=== PATIENT | female | born 1995 | race Caucasian/White ===

== ENCOUNTER 2021-08-04 14:35 | Emergency (ER) | payer OTHER, SELFPAY ==
[2021-08-04 14:38] VITALS: BP 130/92; PULSE 105; RESP 18; TEMP 36.7; O2SAT 98; BMI 21.2
== END 2021-08-04 17:52 | disposition left against medical advice (07) ==
PROVIDERS: Emergency Provider Emergency Medicine; PCP Internal Medicine
DX: M54.50 Low back pain, unspecified (principal)
CPT/HCPCS: 99281

== ENCOUNTER 2025-06-27 14:04 | Outpatient (AMB) | payer OTHER, SELFPAY ==
[2025-06-27 14:10] VITALS: BP 112/67; PULSE 87; RESP 16; O2SAT 98; BMI 19.6
--- NOTE | 2025-06-27 14:10 | A.OFFVIS_ITS ---
Vital Signs 06/27/25 14:10 Height 4 ft 11 in Weight 97 lb BMI 19.6 BP 112/67 Blood Pressure Location Lt brachial Position Sitting Respiration 16 Pulse 87 Pulse Source Pulse Oximeter Pulse Oximetry (%) 98 Oxygen Delivery Method Room Air Intake Visit Reasons: Lumbar radiculitis Stick Welder Required: No Accompanied by: Self / Same As Patient Allergies No Known Allergies Allergy (Verified 06/27/25 14:13) HPI Comments Details: The patient is a 30-year-old female presenting with chronic back pain and sacroiliac joint dysfunction. The patient reports having scoliosis since the age of 11, which was initially managed with a back brace for one year. The scoliosis was deemed moderate, and no further treatment was pursued after the brace was lost during a move from [place]. The patient describes her back pain as constant, with a stabbing, sharp, cramping, pulling, tugging, burning, sore, achy, and heavy quality. The pain radiates from the lower back to the buttocks and into the back of the leg, but not below the knee. The pain is exacerbated by prolonged sitting, walking, and changing positions. The patient has had three pregnancies, with the last one occurring three years ago, which she believes contributed to her sacroiliac joint dysfunction. She has attempted physical therapy multiple times, most recently at the beginning of the year, but found it ineffective. She has also received multiple steroid injections in the lumbar spine and sacroiliac joints at [facility] and [facility], which provided short term pain relief. Patient is not interested in therapeutic injections but is looking for a more permanent pain management options. The patient has a history of childhood epilepsy, which resolved after the onset of menstruation. She currently uses ibuprofen for pain management and has previously used tramadol, which was effective but difficult to obtain. She also tried meloxicam 7.5 mg daily as needed with minimal relief. The patient denies smoking but uses marijuana obtained from a local dispensary. - Onset: Chronic, since adolescence due to scoliosis - Quality: Stabbing, sharp, cramping, pulling, tugging, burning, sore, achy, heavy, pulling - Location: Lower back, radiating to buttocks and back of the leg - Radiation: Does not extend below the knee - Exacerbating factors: Prolonged sitting, walking, changing positions - Relieving factors: Rest, tramadol - Affect: Pain causes exhaustion and fearfulness - Analgesia: Uses ibuprofen; tramadol was effective but difficult to obtain - Adverse Effects: None reported - Activities of Daily Living: Pain interferes with prolonged sitting, walking, and changing positions - Aberrant Drug Related Behaviors: None reported Oswestry Low Back Pain Disability Score=34 [facility] Medical History (Updated 06/29/25 @ 22:31 by LEIGHA Lazaro) Chronic sacroiliac joint pain Scoliosis Pain of female genitalia OCD (obsessive compulsive disorder) Mild intermittent asthma Lumbar radiculitis GERD (gastroesophageal reflux disease) Epilepsy COVID-19 affecting in third trimester Depression Arthropathy of lumbar facet joint Bipolar 1 disorder Surgical History (Updated 06/27/25 @ 14:30 by Maxine Salomon MA) History of bunionectomy Review of Systems Const Details: - Musculoskeletal: Reports chronic back pain, radiating to buttocks and back of the leg - Neurological: Denies seizures currently, history of childhood epilepsy All systems reviewed & are unremarkable except as noted in HPI and below Physical Exam Vital Signs: Last Vital Signs Pulse 87 06/27/25 14:10 Resp 16 06/27/25 14:10 BP 112/67 06/27/25 14:10 Pulse Ox 98 06/27/25 14:10 Oxygen Delivery Method Room Air 06/27/25 14:10 BMI result Body Mass Index 19.6 General: Appears afebrile. Alert and oriented. Mood and affect appropriate. Follows and participates in conversation appropriately. Respiratory effort is unlabored. No cough. Able to transition from sit to stand unassisted. Ambulates with bilaterally normal heel strike and toe off. General: Yes no CVA tenderness Back/Spine/Pelvis Other: Patient is able to walk and stand on heels and tip toes with no difficulties demonstrating good motor tone. No limping. Can flex forward to 70-75 degrees and extend to 5-10 degrees before experiencing lumbar pain. Demonstrates 5/5 strength of quadriceps bilaterally as well as flexion/dorsiflexion of bilateral feet against resistance. 2+ pedal pulses bilaterally. Straight leg rise with dorsiflexion negative bilaterally. +2 patellar and achilles reflexes bilaterally. Facet loading test positive bilaterally. Mia sign, Flaco?s, Gaenslen, Pelvic compression and Stinchfield tests are positive bilaterally. No groin pain with I/E hip rotations. Valsalva maneuver negative. Back: no CVA tenderness Cervical Spine: cervical ROM normal, cervical muscular tenderness and No Cervical spine tenderness Thoracic/Lumbar Spine: thoracic and lumbar spine normal to inspection, No Thoracic/lumbar spine scar(s), Lasegue's sign negative, straight leg raise negative bilaterally, pain with thoraco-lumbar ROM, paraspinal muscle tenderness, Thoracic/lumbar scoliosis, No thoracic spinal tenderness and No lumbar spinal tenderness Pelvis: buttock tenderness Sacroiliac joints: bilaterally tender to palpation Extrem General: Yes capillary refill normal, Yes no clubbing, cyanosis or edema and Yes no calf tenderness Results Reviewed Results Reviewed: MR LUMBAR SPINE WITHOUT AND WITH CONTRAST 08/05/2019 RAYUS HISTORY: Left leg and foot numbness urinary retention initial encounter COMPARISON: Outside scan of the lumbar spine dated 04/30/2013 TECHNIQUE: Sagittal and axial T1 and T2-weighted axial and sagittal images were obtained precontrast. Postcontrast T1 axial and sagittal images were obtained after injection of 9 mL of Dotarem. FINDINGS: L1-2: The disc is of normal height and signal intensity without significant disc bulge or herniation. L2-3: The disc is of normal height and signal intensity without significant disc bulge or herniation. L3-4: The disc is of normal height and signal intensity without significant disc bulge or herniation. L4-5: The disc is of normal height and signal intensity without significant disc bulge or herniation. L5-S1: The disc is of normal height and signal intensity without significant disc bulge or herniation. There is moderate lumbar scoliosis convex left. This was noted previously. The alignment is otherwise normal. The marrow signal intensity is normal. The conus terminates at L2 and appears normal. There is no paraspinous mass. There is a thin-walled left adnexal cyst measuring 4.4 cm in diameter. This is incompletely imaged but is larger than expected for benign physiologic cyst. IMPRESSION: 1. Moderate lumbar scoliosis convex left. This was evident previously. MRI the lumbar spine is otherwise normal. No evidence for disc herniation or nerve root compression. 2. 4.4 cm left adnexal cyst which appears benign but is larger than expected for benign physiologic cyst. Recommend pelvic ultrasound after 1-2 menstrual cycles to further assess. Assessment & Plan Assessment & Plan (1) Chronic sacroiliac joint pain: Code(s): M53.3 - Sacrococcygeal disorders, not elsewhere classified; G89.29 - Other chronic pain Category: Medical (2) Arthropathy of lumbar facet joint: Code(s): M47.816 - Spondylosis without myelopathy or radiculopathy, lumbar region Category: Medical (3) Sacroiliitis: Code(s): M46.1 - Sacroiliitis, not elsewhere classified Category: Medical (4) Scoliosis: Code(s): M41.9 - Scoliosis, unspecified Category: Medical Plan The plan includes obtaining records from previous providers to review past diagnostic injections and therapeutic interventions for the sacroiliac joint dysfunction. An MRI of the sacroiliac joint and x-rays of the back and sacroiliac joints are planned to assess the current status and guide further treatment. The patient was informed about the possibility of sacroiliac joint fusion and peripheral nerve stimulation as potential interventions, with a detailed discussion on the risks and benefits of each. Information pamphlets were provided to patient. Script sent for an increased meloxicam dose 15 mg as needed for pain management and is advised to avoid excessive bending or twisting to prevent exacerbation of symptoms. All questions and concerns have been answered and patient agreed with the treatment plan. Follow up for MRI/xray results and sooner as needed. Patient was informed and verbally consented to the use of an ambient scribe for clinic note documentation during this visit. Orders: Orders XR lumbar spine 2-3V Today M47.816 - Spondylosis without myelopathy or radiculopathy, lumbar region MR pelvis wo con Today G89.29 - Other chronic pain, M46.1 - Sacroiliitis, not elsewhere classified, M53.3 - Sacrococcygeal disorders, not elsewhere classified XR sacroiliac joint min 3V Today G89.29 - Other chronic pain, M46.1 - Sacroiliitis, not elsewhere classified, M53.3 - Sacrococcygeal disorders, not elsewhere classified Medications: New meloxicam Take it with food and full glass of water. Avoid Ibuprofen and other NSAIDs. 15 mg PO DAILY PRN 30 tabs 0RF pain 30 days G89.29 - Other chronic pain, M47.816 - Spondylosis without myelopathy or radiculopathy, lumbar region, M53.3 - Sacrococcygeal disorders, not elsewhere classified Coding Level of Care Code New Pt Level 4 (35606) Diagnoses Chronic sacroiliac joint pain M53.3; G89.29 Arthropathy of lumbar facet joint M47.816 Sacroiliitis M46.1 Scoliosis M41.9
--- OUTSIDE RECORDS SUMMARY | 2025-06-27 17:22 | XMS_ITS ---
Author Name [facility] Organization Unknown Care Team Organization Name Specialty Phone Email Start Date End Da te [facility] Mundo Funk Primary Care 04/09/20232023 [facility] TANYA CARPENTER Primary Care 08/12/2022 05/23/20 24
--- OUTSIDE RECORDS SUMMARY | 2025-06-27 17:22 | XMS_ITS | Encounter Summary ---
Author Organization [employer] Address [address] [place] [address] Care Team Providers Care Assisted Living Administrator Name Role Phone Mundo Funk MD Primary Care Provider [phone] Reason for Visit * Reason Onset Date Comments Referral 08/18/2024 EXTERNAL Psychia try Encounter Details Date Type Department Care Team ([facility] st Contact Info) Description 08/18/2024 Telephone [facility] [address] [place] [address] Mundo Funk MD [address] [place] [address] Social History Tobacco Use Types Packs/Day Years Used Date Smoking Tobacco: Former Cigarettes 0.5 7.3 0 10/05/2011 - 02/02/2019 Smokeless Tobacco: Never Alcohol Use Standard Drinks/Week Comments No 0 (1 standard drink = 0.6 oz pur e alcohol) Comments No Sex and Gender Information Value Date Recorded Sex Assigned at Female 08/10/2024 10:03 AM EST Legal Sex Female 4:33 AM EST Gender Identity Female 08/10/2024 10:03 AM EST Sexual Orientation Straight 08/10/2024 10 :03 AM EST documented as of this encounter Progress Notes * Gaye Meyer MA - 08/22/2024 1:03 PM EST Pt informed that referral was placed * Jewell Banuelos MA - 08/22/2024 1:03 PM EST Please sign new referral. * Mundo Funk MD - 08/22/2024 1:00 PM EST Okay to see physiatry for back pain to consider cortisone shots if needed. * Jewell Banuelos MA - 08/18/2024 10:02 AM EST Referral placed 08/09 to psychiatry. Should this have been physiatry for back pain? * Geronimo Velasquez - 08/18/2024 9:21 AM EST Pt calling for an update on her psychiatry referral, is asking for a call back when it is completedso she can schedule documented in this encounter Plan of Treatment Not on file documented as of this encounter Visit Diagnoses Diagnosis Ankylosing spondylitis of lumbosacral region (CMS/[facility] V24, CMS/[facility] V28)- Primary documented in this encounter Care Teams Assisted Living Administrator Relationship Specialty Start Date End Date Mundo Funk MD [address] [place] [address] [place]ERT [place] [id number] PCP - General Internal Medicine 08/10/24 documented as of this encounter
--- OUTSIDE RECORDS SUMMARY | 2025-06-27 17:22 | XMS_ITS | Clinical Summary ---
Author Organization [facility] [address] [place] [address] [place] [id number] Phone Care Team Providers Care Ship Worker Name Role Phone Mundo Funk MD Primary Care Provider [phone] Allergies No known active allergies Medications ibuprofen (ADVIL,MOTRIN) 600 mg tablet Take 1 tablet (600 mg total) by mouth every 6 (six) hours if needed for mild pain (for up to 30 days). 2 Active levonorgestreL (PLAN B) 1.5 mg tablet Take 1 tablet (1.5 mg total) by mouth 1 (one) time for 1 dose. 1 tablet 5 Active omeprazole (PriLOSEC) [address] capsule Take 1 capsule (20 mg total) by mouth 1 (one) time each day. For 360 days 4 025 Discontinu ed(Therapy completed) etonogestrel-eluti ng contraceptive device (Nexplanon) 68 mg implant subdermal implant Inject 1 each under the skin 1 (one) time. 2 025 Discontinu ed(Therapy completed) meloxicam (MOBIC) 7.5 mg tablet TAKE 1 TABLET BY MOUTH 1 TIME EACH DAY. 30 tablet 4 025 Discontinu ed(Therapy completed) ARIPiprazole (ABILIFY) 5 mg tablet Take 1 tablet (5 mg total) by mouth at bedtime. 4 025 Discontinu ed(Therapy completed) Vraylar 1.5 mg capsule Take 1 capsule (1.5 mg total) by mouth 1 (one) time each day in the morning. 4 025 Discontinu ed(Therapy completed) clonazePAM (KlonoPIN) 1 mg disintegrating tablet TAKE 1 TABLET BY MOUTH THREE TIMES A DAY NEEDED FOR PANIC ATTACKS 4 025 Discontinu ed(Therapy completed) dexAMETHasone (DECADRON) 4 mg tablet Take 1 tablet (4 mg total) by mouth 2 (two) times a day with meals. 4 025 Discontinu ed(Therapy completed) OLANZapine (ZyPREXA) 2.5 mg tablet Take 1 tablet (2.5 mg total) by mouth 2 (two) times a day. 4 025 Discontinu ed(Therapy completed) pantoprazole (PROTONIX) 40 mg EC tablet Take 1 tablet (40 mg total) by mouth 1 (one) time each day. 4 025 Discontinu ed(Therapy completed) tiZANidine (ZANAFLEX) 2 mg tablet Take 1 tablet (2 mg total) by mouth every 8 (eight) hours if needed for muscle spasms. 4 025 Discontinu ed(Therapy completed) naproxen (NAPROSYN) 500 mg tabletIndications: pain Take 1 tablet (500 mg total) by mouth 2 (two) times a day with meals for 10 days. 20 tablet 5 025 predniSONE (DELTASONE) 20 mg tabletIndications: Sprain of right ankle, unspecified ligament, initial encounter Take 2 tablets (40 mg total) by mouth 1 (one) time each day for 5 days. Take with food in the morning 10 tablet 5 025 Active Problems Problem Noted Date Diagnosed Date Arthropathy of lumbar facet joint 12/20/2024 Pain of female genitalia 12/20/2024 Bipolar disorder ([facility] V24, [facility] V28) 03/06 Overview (08/18/2024): Follows with chd GERD (gastroesophageal reflux disease) OCD (obsessive compulsive disorder) 12/16/2022 COVID-19 affecting in third trimester 05/18/2022 Overview (08/18/2024): +test on admission to [facility] 05/16/2022. Had cough and tachycardia, never had fever Lumbar radiculitis 04/11/2019 Blurry vision 04/11/2019 Epilepsy ([facility] V24, [facility] V28) 01/06/2013 Overview (08/18/2024): As a child; resolved no longer on medications. Depression 01/06/2013 Overview (08/18/2024): Seen by N Scoliosis 01/06/2013 Overview (08/18/2024): 05/17-Mild to moderate idiopathic scoliosis. No evidence of disc herniation or nerve root impingement. 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 To the extent that this is characterized, the findings are consistent with chronic changes that may be due to indolent sacroiliitis. Mild intermittent asthma 01/06/2013 Overview (08/18/2024): Usually when sick Resolved Problems Problem Noted Date Diagnosed Date Resolved Date Ankylosing spondylitis of solis mbosacral region ([facility] V24, [facility] V28) 04/11/2019 12/20/2024 Overview (08/18/2024): Dr. Saeed, patient's Drafter Civil (Cad) recommends starting Cimzia Cimzia is safe in and likely compatible with Encounters Date Type Department Care Team Description 06/12/2025 1:34 PM EDT - 06/12/2025 11:59 PM EDT Hospital Encounter Xray - [facility] [address] [place] [address] Discharge Disposition: Home or Self Care 06/12/2025 1:15 PM EDT Office Visit Walk-In Clinic - [facility] [address] [place], [place] [phone] Maurice Abernathy NP Right foot injury, initial encounter (Primary Dx); Sprain of right ankle, unspecified ligament, initial encounter 06/12/2025 Telephone Internal Medicine - [facility] [address] [place], [place] [phone] Mundo Funk MD 04/18/2025 9:18 AM EDT - 04/18/2025 10:55 AM EDT Emergency [facility] [address] [place] [address] Uri Avila MD Abdominal bloating (Primary Dx) Discharge Disposition: Home or Self Care from Last 3 Months Immunizations Name Administration Dates Next Due Influenza Quadravalent, MDCK , 0.5ml, preservative free (Flucelvax) 6mo and older 11/20/2021 Influenza Quadravalent, MDCK , 0.5ml, with preservative (Flucelvax) 6mo and older 07/30/2022,07/18/2020 Influenza trivalent, with pr eservative (Fluzone; Afluria) 6mo and older 06/22/2024,07/01/2012 Pneumococcal conjugate 20 va lent (Prevnar 20, PCV 20) 2mo and older 05/29/2023 Tdap Tetanus diptheria acell ular pertussis (Boostrix; Adacel) 7yo and older 03/10/2022,04/28/2013 Varicella live (Varivax) 12mo and older 05/17/20 22 Surgical History Surgery Date Site/Laterality Comments BUNIONECTOMY PROCEDURE: DE CORRJ HLX VLGS BNCTY SESMDC W/DOUBLE OSTEOTOMY; COMMENT: bilateral bunionectomy OTHER SURGICAL HISTORY PROCEDURE: HISTORY OTHER; COMMENT: surgery for de quervains Medical History Medical History Date Comments Ankylosing spondylitis of si te in spine ([facility] V24, [facility] V28) DX:Ankylosing spondylitis o f site in spine ([facility]) Hyperthyroidism DX:Hyperthyroidi sm Scoliosis Family History Medical History Relation Name Comments No Known Problems Father doesn't kn ow much about father Diabetes Maternal Grandfather Diabetes Maternal Grandmother Hypertension Maternal Grandmother Thyroid disease Maternal Grandmother thyr oid cancer sp thyroidectomy No Known Problems Paternal Grandfather No Known Problems Paternal Grandmother pe rsonality disorder Relation Name Status Comments Father Alive healthy Maternal Grandfather Maternal Grandmother Alive Mother Alive healthy Paternal Grandfather Other Paternal Grandmother Other Sister all 1/2 sisters Alive 3, 2 healthy ; 1 with eating disorder Social History Tobacco Use Types Packs/Day Years Used Date Smoking Tobacco: Every Day Cigarettes 0.5 7.3 Started: 10/05/2011; Last attempted to quit: 02/02/2019 Smokeless Tobacco: Never Tobacco Cessation:Ready to Q uit: Not Asked; Counseling Given: Not Answered Alcohol Use Standard Drinks/Week Comments No 0 (1 standard drink = 0.6 oz pur e alcohol) Housing Instability Answer Date Recorde d Are you worried that in the next 2 months you may not have stable housing? No 09/22/2024 Food Access & Nutrition Answer Date Rec orded Do you have access to a vari ety of food including fruits and vegetables? Yes 09/22/2024 Access to Healthcare Answer Date Record ed Within the last 3 months, ho w many times did you visit the emergency department for your medical care? 3 09/22/2024 Health Literacy Answer Date Recorded How often do you need to hav e someone help you when you read instructions, pamphlets, or other written material from your doctor or pharmacy? Never 09/22/2024 Caregiver: How often do you need to have someone help you when you read instructions, pamphlets, or other written material from your doctor or pharmacy? Not on file 09/22/2024 Financial Risk Answer Date Recorded How hard is it for you to pa y for the very basics like food, housing, medical care, and air conditioning / heating? Not very hard 09/22/2024 Transportation Answer Date Recorded Has the lack of transportati on kept you from meetings, work, or from getting things needed for daily living? No Has the lack of transportati on kept you from medical appointments or from getting medications? No 09/22/2024 Social Isolation Answer Date Recorded How often do you feel lonely or isolated from th ose around you? Rarely 09/22/2024 Food Risk Answer Date Recorded Within the past 12 months we worried whether our food would run out before we got money to buy more. Never true 09/22/2024 Within the past 12 months th e food we bought just didn't last and we didn't have money to get more. Never true 09/22/2024 Dependent Care Answer Date Recorded Do you need help finding or paying for care for your loved ones. For example, child support agent or elderly care for an older adult? No 09/22/2024 Education Answer Date Recorded Do you think completing more education or training, like finishing a GED, going to college, or learning a trade, would be helpful for you? No 09/22/2024 Employment and Income Answer Date Recor ded During the last four weeks, have you been actively looking for work? No 09/22/2024 Living Situation Answer Date Recorded What is your living situation? 1 11/23/2023 Comments No Sex and Gender Information Value Date Recorded Sex Assigned at Female 08/10/2024 10:03 AM EST Legal Sex Female 4:33 AM EST Gender Identity Female 08/10/2024 10:03 AM EST Sexual Orientation Straight 08/10/2024 10 :03 AM EST Obstetrics History Para Term AB IAB SAB Ectopic Multiple Livin g Live Births 3 3 2 1 3 3 Date Outcome GA Total Labor Labor/2nd/3rd Weight Sex Type Anes PTL Ciera A1 A5 Name Clin 2009 Term 37w 2d 7h 12m/ 2376 g (83.8 oz) F Vag-S pont Epidur al Livin g 7 9 Bianka salvador fausto Delivery Location:[facility] Comments:bilat labial laceration 2012 35w 4d 4h 25m/ 2381 g (84 oz) F Vag-S pont Epidur al Livin g 8 9 Noris a CNM Delivery Location:[facility] 2021 Term 37w 4d 2608 g (92 oz) F Vag-S pont Epidur al Livin g Fe[place] nd Last Filed Vital Signs Vital Sign Reading Time Taken Comments Blood Pressure 110/66 06/12/2025 1:27 PM EDT Pulse 64 06/12/2025 1:27 PM EDT Temperature 36.6 C (97.8 F) 06/12/2025 1:27 PM EDT Respiratory Rate 16 04/18/2025 8:56 AM EDT Oxygen Saturation 99% 06/12/2025 1:27 PM EDT Inhaled Oxygen Concentration - - Weight 52.6 kg (116 lb) 04/18/2025 8:56 AM EDT Height 149.9 cm (4' 11 ) 04/18/2025 8:56 AM EDT Body Mass Index 23.43 04/18/2025 8:56 AM EDT Plan of Treatment Health Maintenance Due Date Last Done Comments Hepatitis B Vaccines (1 of 3 - 19+ 3-dose series) 2012 Depression Screening 10/05/2024 09/22/2024, 03/28/20 COVID-19 Vaccine (2023- season) 2025 Influenza Vaccine (#1) 2025 , 07/30/2022, 11/20/2021, Additional history exists Social Influencers of Health Screening 09/22/2025 09/22/2024 Cervical Cancer Screening: HPV 11/20/2026 11/20/2021 Cholesterol Screening (Lipid Panel) 03/28/2029 03/28/2024, 03/28/2024 DTaP,Tdap,and Td Vaccines (3 - Td or Tdap) 03/10/2032 03/10/2022, 04/28/2013 HIV Screening Completed 11/18/2021 Hepatitis C Screening Completed 11/18/2021 Varicella Vaccines Aged Out 05/17/2022 No longer eligible based on patient's age to complete this topic Pneumococcal Vaccine: Pediatrics (0 to 5 Years) and At-Risk Patients (6 to 49 Years) Completed 05/29/2023 HIB Vaccines Aged Out No longer eligi ble based on patient's age to complete this topic HPV Vaccines Aged Out No longer eligi ble based on patient's age to complete this topic Hepatitis A Vaccines Aged Out No long er eligible based on patient's age to complete this topic IPV Vaccines Aged Out No longer eligi ble based on patient's age to complete this topic MMR Vaccines Aged Out No longer eligi ble based on patient's age to complete this topic Meningococcal ACWY Vaccine Aged Out N o longer eligible based on patient's age to complete this topic Meningococcal B Vaccine Aged Out No l onger eligible based on patient's age to complete this topic RSV Immunization Patients Under 20 months Aged Out No longer eligible based on patient's age to complete this topic Procedures Procedure Name Priority Date/Time Associated Diagnosis Comments XR FOOT 3+ VIEWS RIGHT STAT 06/12/2025 1:50 PM EDT Right foot injury, initial encounter HCG, QUANTITATIVE STAT 04/18/2025 9:1 6 AM EDT DEPRESSION SCREENING Routine 03/28/2024 LIPID PANEL Routine 03/28/2024 HPV Routine 11/20/2021 HEPATITIS C SCREENING Routine 11/18/2021 HIV SCREENING Routine 11/18/2021 from Last 3 Months or Most Recently Relevant to Health Maintenance Results * XR Foot 3+ Views Right (06/12/2025 1:50 PM EDT) Anatomical Region Laterality Modality Lower Extremities, Foot Right Radiogra phic Imaging 06/12/2025 2:22 PM EDT Impressions 06/12/2025 2:27 PM EDT No acute fracture detected. Postsurgical changes involving the first metatarsal. Degenerative changes at the first MTP joint. POS - [id number] -------- FINAL REPORT -------- Dictated By: Leandra Borjas Dictated Date: 06/12/2025 14:22 ET Assigned Physician: Leandra Borjas Reviewed and Electronically Signed By: Leandra Borjas Signed Date: 06/12/2025 14:27 ET Workstation ID: [id number] Transcribed By: Self Edit Transcribed Date: 06/12/2025 14:22 ET Narrative 06/12/2025 2:27 PM EDT EXAM: Right foot x-ray HISTORY: Foot pain after injury. COMPARISON: None FINDINGS: 3 views were performed. No acute fracture or malalignment detected. Healed osteotomy involving the distal first metatarsal with an intact transverse screw entering from the dorsal aspect. No surrounding lucency to indicate loosening or infection. Degenerative changes at the first MTP joint with moderate joint space narrowing and mild spurring. No destructive bone lesion. Procedure Note Leandra Borjas MD - 06/12/2025 EXAM: Right foot x-ray HISTORY: Foot pain after injury. COMPARISON: None FINDINGS: 3 views were performed. No acute fracture or malalignment detected. Healed osteotomy involving thedistal first metatarsal with an intact transverse screw entering from thedorsal aspect. No surrounding lucency to indicate loosening or infection.Degenerative changes at the first MTP joint with moderate joint spacenarrowing and mild spurring. No destructive bone lesion. IMPRESSION: No acute fracture detected. Postsurgical changes involving the firstmetatarsal. Degenerative changes at the first MTP joint. POS - [id number] -------- FINAL REPORT -------- Dictated By: Leandra Borjas Dictated Date: 06/12/2025 14:22 ET Assigned Physician: Leandra Borjas Reviewed and Electronically Signed By: Leandra Borjas Signed Date: 06/12/2025 14:27 ET Workstation ID: [id number] Transcribed By: Self Edit Transcribed Date: 06/12/2025 14:22 ET us Maurice Abernathy NP IMG XR PROCEDURES Final Resul t * HCG, quantitative (04/18/2025 9:16 AM EDT) hCG Quant <1 mIU/mL LAB CHEMISTRY METHOD 04/18/2025 10:22 AM EDT [facility] Blood Venous blood specimen / Unknown Venipuncture / Unknown 04/18/2025 9:16 AM EDT 04/18/2025 9:52 AM EDT Narrative [facility] - 04/18/2025 10:22 AM EDT Quantitative HCG Reference Ranges Time after Conception MIU/ML 0.2-1 Week 5-50 1-2 Weeks 50-500 2-3 Weeks 100-5,000 3-4 Weeks 500-10,000 4-5 Weeks 1,000-50,000 5-6 Weeks 10,000-100,000 6-8 Weeks 15,000-200,000 2-3 Months 10,000-100,000 2nd Trimester 1,000-94,000 3rd Trimester 2,500-90,000 Non- Females 1-3 Uri Avila MD LAB BLOOD ORDERABLES Final Resu lt [facility] ([facility]) [facility] [address] [place] [address], [place] [phone] * Depression Screening (03/28/2024) [facility] Depression Screening abstracted Result [facility] Provider HEALTH MAINTENANCE Final Result * Lipid panel (03/28/2024) [facility] LDL/HDL Ratio 3 0 - 4 Triglycerides 54 0 - 150 mg/dL Cholesterol 162 0 - 200 mg/dL HDL 63 >=40 mg/dL LDL Cholesterol 89 0 - 100 mg/dL Blood Venous blood specimen / Unknown Result [facility] Historical [facility] LAB BLOOD ORDERABLES Katelyn l Result * Cervical Cancer Screening: HPV (11/20/2021) [facility] Cervical Cancer Screening: HPV abstracted, no interpretation Result [facility] HEALTH MAINTENANCE Final Result * HIV Screening (11/18/2021) [facility] HIV Screening abstracted Result [facility] HEALTH MAINTENANCE Final Result * Hepatitis C Screening (11/18/2021) [facility] Hepatitis C Screening abstracted Result [facility] HEALTH MAINTENANCE Final Result from Last 3 Months or Most Recently Relevant to Health Maintenance Insurance [facility] [address] [employer] Care Teams Ship Worker Relationship Specialty Start Date End Date Mundo Funk MD [facility] [place] [address] PCP - General Internal Medicine 08/10/24
== END 2025-06-27 14:37 | disposition home or self-care (01) ==
LOC: HO.PMC 14:05
PROVIDERS: PCP Internal Medicine Hematology & Oncology; Visit Provider Nurse Practitioner Family
DX: M53.3 Sacrococcygeal disorders, not elsewhere classified (principal); G89.29 Other chronic pain; M47.816 Spondylosis without myelopathy or radiculopathy, lumbar region; M46.1 Sacroiliitis, not elsewhere classified; M41.9 Scoliosis, unspecified
CPT/HCPCS: 99204

== ENCOUNTER → 2025-06-27 14:04 | Outpatient (BNVA) | payer OTHER, SELFPAY | PROVIDERS: PCP Internal Medicine Hematology & Oncology; Visit Provider Nurse Practitioner Family | DX: M53.3 Sacrococcygeal disorders, not elsewhere classified (principal); M47.816 Spondylosis without myelopathy or radiculopathy, lumbar region; M46.1 Sacroiliitis, not elsewhere classified; M41.9 Scoliosis, unspecified; G89.29 Other chronic pain | CPT/HCPCS: 99202 ==

== ENCOUNTER 2025-07-10 10:11 | Outpatient (REF) | payer OTHER, SELFPAY ==
--- NOTE | ~2025-07-10 | XR_ITS ---
EXAMINATION: XR SACROILIAC JOINTS CLINICAL INFORMATION: M53.3 - Sacrococcygeal disorders, not elsewhere classified COMPARISON: None available. TECHNIQUE: 3 views of the sacroiliac joints FINDINGS: SI joints are symmetrical without sclerosis, narrowing, or effusion. No other abnormalities are noted. XR/XR sacroiliac joint min 3V IMPRESSION: Unremarkable sacroiliac joints. Electronically signed by: Az Yin MD 07/10/2025 10:42 AM EDT
--- NOTE | ~2025-07-10 | XR_ITS ---
EXAMINATION: XR LUMBOSACRAL SPINE CLINICAL INFORMATION: M47.816 - Spondylosis without myelopathy or radiculopathy, lumbar region COMPARISON: None available. TECHNIQUE: Three views of the lumbosacral spine. FINDINGS: Levoconvex curvature, with some degree of vertebral body rotation. No acute fracture or subluxation. Disc spaces are relatively maintained. Mild anterior endplate spurring at L1. Cholecystectomy clips in the right upper quadrant. Nonobstructive bowel gas pattern. Bilateral SI joints are symmetric. No free air is seen. XR/XR lumbar spine 2-3V IMPRESSION: No acute osseous findings. Levoconvex scoliosis. Electronically signed by: Timur Ballesteros MD 07/10/2025 10:44 AM EDT
--- OUTSIDE RECORDS SUMMARY | 2025-07-10 11:51 | XMS_ITS | Encounter Summary ---
Author Organization [facility] Address [address] [place] [address] Care Team Providers Care Systems Navigator Name Role Phone Mundo Funk MD Primary Care Provider [phone] Reason for Visit * Reason Onset Date Comments Referral 08/18/2024 EXTERNAL Psychia try Encounter Details Date Type Department Care Team ([facility] st Contact Info) Description 08/18/2024 Telephone Pipe Organ Mechanic Apprentice - [facility] [address] [place] [address] Mundo Funk MD [address] [place] [address] Social History Tobacco Use Types Packs/Day Years [...] Diagnoses Diagnosis Ankylosing spondylitis of lumbosacral region ([facility] V24, [facility] V28)- Primary documented in this encounter Care Teams Systems Navigator Relationship Specialty Start Date End Date Mundo Funk MD [address] [place] [address] LAM[place]ERT [place] [address] PCP - General Internal Medicine 08/10/24 documented as of this encounter
--- OUTSIDE RECORDS SUMMARY | 2025-07-10 11:51 | XMS_ITS | Clinical Summary ---
Author Organization [facility] [address] [place] [address] [place] [phone] Phone Care Team Providers Care Business Analyst Sales Operations Name Role Phone Mundo Funk MD Primary Care Provider Allergies No known active allergies Medications ibuprofen (ADVIL,MOTRIN) 600 mg tablet Take 1 tablet (600 mg total) by mouth every 6 (six) hours if needed for mild pain (for up to 30 days). 2 Active methocarbamoL (ROBAXIN) 500 mg tablet Take 1 tablet (500 mg total) by mouth 4 (four) times a day if needed for muscle spasms. 40 tablet 5 025 Active predniSONE (DELTASONE) 20 mg tablet Take 2 tablets daily x 4 days, then 1 tablet daily x 4 days 12 tablet 5 Active omeprazole (PriLOSEC) 20 mg [...] 1 TIME EACH DAY. 30 tablet 4 Discontinu ed(Therapy completed) ARIPiprazole (ABILIFY) 5 mg tablet Take 1 tablet (5 mg total) by mouth at bedtime. 4 Discontinu ed(Therapy completed) Vraylar 1.5 mg capsule Take 1 capsule (1.5 mg total) by mouth 1 (one) time each day in the morning. 4 Discontinu ed(Therapy completed) clonazePAM (KlonoPIN) 1 mg disintegrating tablet TAKE 1 TABLET BY MOUTH THREE TIMES A DAY NEEDED FOR PANIC ATTACKS 4 Discontinu ed(Therapy completed) dexAMETHasone (DECADRON) 4 mg tablet Take 1 tablet (4 mg total) by mouth 2 (two) times a day with meals. 4 Discontinu ed(Therapy completed) OLANZapine (ZyPREXA) 2.5 mg tablet Take 1 tablet (2.5 mg total) by mouth 2 (two) times a day. 4 Discontinu ed(Therapy completed) pantoprazole (PROTONIX) 40 mg EC tablet Take 1 tablet (40 mg total) by mouth 1 (one) time each day. 4 Discontinu ed(Therapy completed) tiZANidine (ZANAFLEX) 2 mg tablet Take 1 tablet (2 mg total) by mouth every 8 (eight) hours if needed for muscle spasms. 4 Discontinu ed(Therapy completed) levonorgestreL (PLAN B) 1.5 mg tablet Take 1 tablet (1.5 mg total) by mouth 1 (one) time for 1 dose. 1 tablet 5 025 Discontinu ed(Therapy completed) naproxen (NAPROSYN) 500 mg tabletIndications: pain Take 1 tablet (500 mg total) by mouth 2 (two) times a day with meals for 10 days. 20 tablet 5 predniSONE (DELTASONE) 20 mg tabletIndications: Sprain of right ankle, unspecified ligament, initial encounter Take 2 tablets (40 mg total) by mouth 1 (one) time each day for 5 days. Take with food in the morning 10 tablet 5 025 Active Problems Problem Noted Date Diagnosed Date Arthropathy of lumbar facet joint 12/20/2024 Pain of female genitalia 12/20/2024 Bipolar disorder ([facility] V24, [facility] V28) 03/06 Overview (08/18/2024): Follows with chd GERD (gastroesophageal reflux disease) OCD (obsessive compulsive disorder) 12/16/2022 COVID-19 affecting in third trimester 05/18/2022 Overview (08/18/2024): +test on admission to [facility] 05/16/2022. Had cough and tachycardia, never had fever Lumbar radiculitis 04/11/2019 Blurry vision 04/11/2019 Epilepsy ([facility] V24, [facility] V28) 01/06/2013 Overview (08/18/2024): As a child; [...] Date Ankylosing spondylitis of solis mbosacral region ([facility] V24, [facility] V28) 04/11/2019 12/20/2024 Overview (08/18/2024): Dr. Saeed, patient's Wheat Farmer recommends starting Cimzia Cimzia is safe in and likely compatible with Encounters Date Type Department Care Team Description 06/30/2025 10:55 AM EDT - 06/30/2025 11:59 PM EDT Hospital Encounter Xray - [address] [phone] Acute left-sided thoracic back pain Discharge Disposition: Home or Self Care 06/30/2025 10:45 AM EDT Office Visit Internal Medicine - [address] [phone] Abena Kaplan NP Acute left-sided thoracic back pain (Primary Dx) 06/12/2025 1:34 PM EDT - 06/12/2025 11:59 PM EDT Hospital Encounter Xr - [address] [phone] Discharge Disposition: Home or Self Care 06/12/2025 1:15 PM EDT Office Visit Walk-In Clinic - [address] [phone] Maurice Abernathy NP Right foot injury, initial encounter (Primary Dx); Sprain of right ankle, unspecified ligament, initial encounter 06/12/2025 Telephone Internal Medicine - [address] [phone] Mundo Funk MD 04/18/2025 9:18 AM EDT - 04/18/2025 10:55 AM EDT Emergency [facility] Emergency [address] [place] [phone] Uri Avila MD Abdominal bloating (Primary Dx) Discharge Disposition: Home or Self Care from Last 3 Months Immunizations Immunization Administration Dates Next Due Influenza Quadravalent, MDCK [...] History Surgery Date Site/Laterality Comments BUNIONECTOMY PROCEDURE: WI CORRJ HLX VLGS BNCTY SESMDC W/DOUBLE OSTEOTOMY; COMMENT: bilateral bunionectomy OTHER SURGICAL HISTORY PROCEDURE: HISTORY OTHER; COMMENT: surgery for de quervains Medical History Medical History Date Comments Ankylosing spondylitis of si te in spine ([facility] V24, [facility] V28) DX:Ankylosing spondylitis o f site in spine ([facility]) Hyperthyroidism DX:Hyperthyroidi sm Scoliosis Family History Medical [...] Record ed Within the last 3 months, ender jimenez many times did you visit the emergency [...] for your loved ones. For example, child care counselor or elderly care for an older adult? [...] Date Recorded What is your living situation? Unrecognized valu e 09/22/2024 Comments No Sex and Gender Information Value [...] Epidur al Livin g 7 9 Bianka franco fausto Delivery Location:[facility] Comments:bilat labial laceration 2012 35w 4d 4h 25m/ 2381 g (84 oz) F Vag-S pont Epidur al Livin g 8 9 Laura Hamm a CNM Delivery Location:[facility] 2021 Term 37w 4d 2608 g (92 oz) F Vag-S pont Epidur al Livin g Fe[place] nd Last Filed Vital Signs Vital Sign Reading Time Taken Comments Blood Pressure 118/75 06/30/2025 10:43 AM EDT A Pulse 74 06/30/2025 10:43 AM EDT Temperature 36.6 C (97.8 F) 06/12/2025 1:27 PM EDT Respiratory Rate 16 04/18/2025 8:56 AM EDT Oxygen Saturation 99% 06/12/2025 1:27 PM EDT Inhaled Oxygen Concentration - - Weight 45.4 kg (100 lb) 06/30/2025 10:43 AM EDT Height 149.9 cm (4' 11 ) 06/30/2025 10:43 AM EDT Body Mass Index 20.2 06/30/2025 10:43 AM EDT Plan of Treatment Health Maintenance Due Date Last Done Comments Hepatitis B Vaccines (1 of 3 - 19+ 3-dose series) 2012 HPV Vaccines (1 - 3-dose SCDM series) 2020 Depression Screening 10/05/2024 09/22/2024, 03/28/20 COVID-19 Vaccine (2023- season) 2025 Influenza Vaccine (#1) 2025 , 07/30/2022, 11/20/2021, Additional history exists Social Influencers of Health Screening 09/22/2025 09/22/2024 Cervical Cancer Screening: HPV 11/20/2026 11/20/2021 Cholesterol Screening (Lipid Panel) 03/28/2029 03/28/2024, 03/28/2024 DTaP,Tdap,and Td Vaccines (3 - Td or Tdap) 03/10/2032 03/10/2022, 04/28/2013 RSV Immunization Adult Patients (1 - 1-dose 75+ series) 2068 HIV Screening Completed 11/18/2021 Hepatitis C Screening [...] Procedure Name Priority Date/Time Associated Diagnosis Comments EXTERNAL XRAY REPORT 07/10/2025 XR THORACIC SPINE 2 VIEWS Routine 06/30/2025 11:07 AM EDT Acute left-sided thoracic back pain XR FOOT 3+ VIEWS RIGHT STAT 06/12/2025 1:50 PM EDT Right foot injury, initial encounter HCG, QUANTITATIVE STAT 04/18/2025 9:1 6 AM EDT HM DEPRESSION SCREENING Routine 03/28/2024 LIPID PANEL Routine 03/28/2024 HPV Routine 11/20/2021 HEPATITIS C SCREENING Routine 11/18/2021 HIV SCREENING Routine 11/18/2021 from Last 3 Months or Most Recently Relevant to Health Maintenance Results * External Xray Report (07/10/2025) Anatomical Region Laterality Modality Radiographic Karina ging us Provider [facility] IMG XR PROCEDURES Final Result * XR Thoracic Spine 2 Views (06/30/2025 11:07 AM EDT) Anatomical Region Laterality Modality Spine, T-spine Radiographic Karina ging 06/30/2025 4:36 PM EDT Impressions 06/30/2025 4:37 PM EDT No acute fracture or dislocation of the thoracic spine. -------- FINAL REPORT -------- Dictated By: Lio Mosqueda Dictated Date: 06/30/2025 16:36 ET Assigned Physician: Lio Mosqueda Reviewed and Electronically Signed By: Lio Mosqueda Signed Date: 06/30/2025 16:37 ET Workstation ID: [id number] Transcribed By: Self Edit Transcribed Date: 06/30/2025 16:36 ET Narrative 06/30/2025 4:37 PM EDT HISTORY: pain TECHNIQUE: 2 views of the thoracic spine COMPARISON: None FINDINGS: The vertebral body and disc space heights are preserved. There is moderate dextroscoliosis of the thoracic spine. The upper thoracic spine is not well-visualized on the lateral view. Spinal alignment is maintained without evidence of spondylolisthesis. No acute fracture is identified. Surgical angelique overlying the right upper quadrant. Procedure Note Lio Mosqueda MD - 06/30/2025 HISTORY: pain TECHNIQUE: 2 views of the thoracic spine COMPARISON: None FINDINGS: The vertebral body and disc space heights are preserved. There is moderatedextroscoliosis of the thoracic spine. The upper thoracic spine is notwell-visualized on the lateral view. Spinal alignment is maintainedwithout evidence of spondylolisthesis. No acute fracture is identified.Surgical angelique overlying the right upper quadrant. IMPRESSION: No acute fracture or dislocation of the thoracic spine. -------- FINAL REPORT -------- Dictated By: Lio Mosqueda Dictated Date: 06/30/2025 16:36 ET Assigned Physician: Lio Mosqueda Reviewed and Electronically Signed By: Lio Mosqueda Signed Date: 06/30/2025 16:37 ET Workstation ID: [id number] Transcribed By: Self Edit Transcribed Date: 06/30/2025 16:36 ET Abena Kaplan NP IMG XR PROCEDURES Final Result * XR Foot 3+ Views Right (06/12/2025 1:50 PM EDT) Anatomical Region Laterality Modality Lower Extremities, Foot Right Radiogra phic Imaging 06/12/2025 2:22 PM EDT Impressions 06/12/2025 2:27 PM EDT No acute fracture detected. Postsurgical changes involving the first metatarsal. Degenerative changes at the first MTP joint. POS - [id number] -------- FINAL REPORT -------- Dictated By: Leandra Borjas Dictated Date: 06/12/2025 14:22 ET Assigned Physician: Leandra Borjas Reviewed and Electronically Signed By: Leandra Borjas Signed Date: 06/12/2025 14:27 ET Workstation ID: [id number] Transcribed By: Self Edit Transcribed Date: 06/12/2025 [...] at the first MTP joint. POS - [id number] -------- FINAL REPORT -------- Dictated By: Leandra Borjas Dictated Date: 06/12/2025 14:22 ET Assigned Physician: Leandra Borjas Reviewed and Electronically Signed By: Leandra Borjas Signed Date: 06/12/2025 14:27 ET Workstation ID: [id number] Transcribed By: Self Edit Transcribed Date: 06/12/2025 14:22 ET us Maurice Abernathy NP IMG XR PROCEDURES Final Resul t * HCG, quantitative (04/18/2025 9:16 AM EDT) hCG Quant <1 mIU/mL LAB CHEMISTRY METHOD 04/18/2025 10:22 AM EDT [facility] Blood Venous blood specimen / Unknown Venipuncture / Unknown 04/18/2025 9:16 AM EDT 04/18/2025 9:52 AM EDT Narrative [facility] - 04/18/2025 10:22 AM EDT Quantitative HCG Reference Ranges Time after Conception MIU/ML 0.2-1 Week 5-50 1-2 Weeks 50-500 2-3 Weeks 100-5,000 3-4 Weeks 500-10,000 4-5 Weeks 1,000-50,000 5-6 Weeks 10,000-100,000 6-8 Weeks 15,000-200,000 2-3 Months 10,000-100,000 2nd Trimester 1,000-94,000 3rd Trimester 2,500-90,000 Non- Females 1-3 us Uri Avila MD LAB BLOOD ORDERABLES Final Resu lt [facility] [address] [place] [address], * Depression Screening (03/28/2024) [facility] Depression Screening abstracted Historical Provider HEALTH MAINTENANCE Final Result * Lipid panel (03/28/2024) [facility] LDL/HDL Ratio 3 0 - 4 Triglycerides 54 0 - 150 mg/dL Cholesterol 162 0 - 200 mg/dL HDL 63 >=40 mg/dL LDL Cholesterol 89 0 - 100 mg/dL Blood Venous blood specimen / Unknown Historical Provider LAB BLOOD ORDERABLES Katelyn l Result * Cervical Cancer Screening: HPV (11/20/2021) [facility] Cervical Cancer Screening: HPV abstracted, no interpretation [facility] Provider HEALTH MAINTENANCE Final Result * HIV Screening (11/18/2021) [facility] HIV Screening abstracted [facility] Provider HEALTH MAINTENANCE Final Result * Hepatitis C Screening (11/18/2021) [facility] Hepatitis C Screening abstracted [facility] Provider HEALTH MAINTENANCE Final Result from Last 3 Months or Most Recently Relevant to Health Maintenance Insurance [facility] [employer] Care Teams Business Analyst Sales Operations Relationship Specialty Start Date End Date Mundo Funk MD [address] [place] [address] PCP - General Internal Medicine 08/10/24
== END 2025-07-10 10:12 | disposition home or self-care (01) ==
LOC: HO.XRAY 10:11
PROVIDERS: PCP Internal Medicine; Visit Provider Nurse Practitioner Family
DX: M53.3 Sacrococcygeal disorders, not elsewhere classified (principal); G89.29 Other chronic pain; M46.1 Sacroiliitis, not elsewhere classified; M47.816 Spondylosis without myelopathy or radiculopathy, lumbar region
CPT/HCPCS: 72100; 72202

== ENCOUNTER → 2025-07-10 10:17 | Outpatient (BNV) | payer OTHER, SELFPAY | PROVIDERS: PCP Internal Medicine; Visit Provider Radiology Diagnostic Radiology | DX: M53.3 Sacrococcygeal disorders, not elsewhere classified (principal) | CPT/HCPCS: 72202 ==

== ENCOUNTER 2025-08-28 13:54 | Outpatient (AMB) | payer OTHER, SELFPAY ==
--- NOTE | 2025-08-28 13:56 | MHC.OFFVIS ---
Vital Signs 08/28/25 14:01 Height 4 ft 11 in Weight 100 lb BMI 20.2 BP 122/71 Blood Pressure Location Lt brachial Position Sitting Pulse 87 Pulse Source Pulse Oximeter Pulse Oximetry (%) 100 Oxygen Delivery Method Room Air Intake Visit Reasons: MEDICATION FOLLOW UP* DO NOT RESCHEDULE Security Services Specialist Required: No Accompanied by: Child Allergies No Known Allergies Allergy (Verified 08/28/25 14:01) HPI Comments Details: The patient is a 30 year old individual presenting for a medication discussion and management of lower back pain. The patient reports right-sided lower back pain, which was exacerbated by a fall on Thursday while trying to get milk for a baby. Following the fall, the patient experienced no relief despite using meloxicam, methocarbamol, heat and cold therapy, and performing stretches. The patient also notes a sensation of the leg going to give out, which has been felt more frequently since the fall. The patient is currently undergoing physical therapy, having completed two sessions, and finds that methocarbamol works well in conjunction with PT, although the effect is not long-lasting. The patient reports no side effects such as dizziness from methocarbamol. The patient also recently received tramadol during a recent emergency room visit, which has been helpful for the pain. Currently rates pain at 5/10. The patient notes significant pain relief when lying down and lifting the lower hip to straighten the lower back. The patient has questions regarding eligibility for spinal surgery, mentioning Baig angles reference on her spine xray for moderate scoliosis. An MRI was previously ordered but was denied by insurance, with the requirement to complete physical therapy first. Denies any recent cough, cold, infection, fever or any other significant changes in medical history since last office visit. [facility] records were reviewed for Right therapeutic SI joint injection on 09/08/24 with short term pain relief. PRIOR: The patient is a 30-year-old female presenting with chronic back pain and sacroiliac joint dysfunction. The patient reports having scoliosis since the age of 11, which was initially managed with a back brace for one year. The scoliosis was deemed moderate, and no further treatment was pursued after the brace was lost during a move from [place]. The patient describes her back pain as constant, with a stabbing, sharp, cramping, pulling, tugging, burning, sore, achy, and heavy quality. The pain radiates from the lower back to the buttocks and into the back of the leg, but not below the knee. The pain is exacerbated by prolonged sitting, walking, and changing positions. The patient has had three pregnancies, with the last one occurring three years ago, which she believes contributed to her sacroiliac joint dysfunction. She has attempted physical therapy multiple times, most recently at the beginning of the year, but found it ineffective. She has also received multiple steroid injections in the lumbar spine and sacroiliac joints at [facility], which provided short term pain relief. Patient is not interested in therapeutic injections but is looking for a more permanent pain management options. The patient has a history of childhood epilepsy, which resolved after the onset of menstruation. She currently uses ibuprofen for pain management and has previously used tramadol, which was effective but difficult to obtain. She also tried meloxicam 7.5 mg daily as needed with minimal relief. The patient denies smoking but uses marijuana obtained from a local dispensary. - Onset: Chronic, since adolescence due to scoliosis - Quality: Stabbing, sharp, cramping, pulling, tugging, burning, sore, achy, heavy, pulling - Location: Lower back, radiating to buttocks and back of the leg - Radiation: Does not extend below the knee - Exacerbating factors: Prolonged sitting, walking, changing positions - Relieving factors: Rest, tramadol - Affect: Pain causes exhaustion and fearfulness - Analgesia: Uses ibuprofen; tramadol was effective but difficult to obtain - Adverse Effects: None reported - Activities of Daily Living: Pain interferes with prolonged sitting, walking, and changing positions - Aberrant Drug Related Behaviors: None reported Oswestry Low Back Pain Disability Score=34 [facility] Medical History Chronic sacroiliac joint pain Scoliosis Pain of female genitalia OCD (obsessive compulsive disorder) Mild intermittent asthma Lumbar radiculitis GERD (gastroesophageal reflux disease) Epilepsy COVID-19 affecting in third trimester Depression Arthropathy of lumbar facet joint Bipolar 1 disorder Surgical History History of bunionectomy Review of Systems Const All systems reviewed & are unremarkable except as noted in HPI and below Physical Exam General: Appears afebrile. Alert and oriented. Mood and affect appropriate. Follows and participates in conversation appropriately. Respiratory effort is unlabored. No cough. Able to transition from sit to stand unassisted. Ambulates with bilaterally normal heel strike and toe off. General: Yes no CVA tenderness Back/Spine/Pelvis Other: Patient is able to walk and stand on heels and tip toes with no difficulties demonstrating good motor tone. No limping. Can flex forward to 70-75 degrees and extend to 10-15 degrees before experiencing lumbar pain. Demonstrates 5/5 strength of quadriceps bilaterally as well as flexion/dorsiflexion of bilateral feet against resistance. 2+ pedal pulses bilaterally. Straight leg rise with dorsiflexion negative bilaterally. +2 patellar and achilles reflexes bilaterally. Facet loading test positive bilaterally. Mia sign, Flaco?s, Gaenslen, Pelvic compression and Stinchfield tests are positive bilaterally. Mild groin pain with I/E hip rotations. Valsalva maneuver negative. Back: no CVA tenderness Cervical Spine: cervical ROM normal, cervical muscular tenderness and No Cervical spine tenderness Thoracic/Lumbar Spine: thoracic and lumbar spine normal to inspection, No Thoracic/lumbar spine scar(s), Lasegue's sign negative, straight leg raise negative bilaterally, pain with thoraco-lumbar ROM, paraspinal muscle tenderness, thoraco-lumbar ROM limited, Thoracic/lumbar scoliosis, No thoracic spinal tenderness and No lumbar spinal tenderness Pelvis: buttock tenderness Sacroiliac joints: bilaterally tender to palpation Results Reviewed Results Reviewed: MR LUMBAR SPINE WITHOUT AND WITH CONTRAST 08/05/2019 RAYUS HISTORY: Left leg and foot numbness urinary retention initial encounter COMPARISON: Outside scan of the lumbar spine dated 04/30/2013 TECHNIQUE: Sagittal and axial T1 and T2-weighted axial and sagittal images were obtained precontrast. Postcontrast T1 axial and sagittal images were obtained after injection of 9 mL of Dotarem. FINDINGS: L1-2: The disc is of normal height and signal intensity without significant disc bulge or herniation. L2-3: The disc is of normal height and signal intensity without significant disc bulge or herniation. L3-4: The disc is of normal height and signal intensity without significant disc bulge or herniation. L4-5: The disc is of normal height and signal intensity without significant disc bulge or herniation. L5-S1: The disc is of normal height and signal intensity without significant disc bulge or herniation. There is moderate lumbar scoliosis convex left. This was noted previously. The alignment is otherwise normal. The marrow signal intensity is normal. The conus terminates at L2 and appears normal. There is no paraspinous mass. There is a thin-walled left adnexal cyst measuring 4.4 cm in diameter. This is incompletely imaged but is larger than expected for benign physiologic cyst. IMPRESSION: 1. Moderate lumbar scoliosis convex left. This was evident previously. MRI the lumbar spine is otherwise normal. No evidence for disc herniation or nerve root compression. 2. 4.4 cm left adnexal cyst which appears benign but is larger than expected for benign physiologic cyst. Recommend pelvic ultrasound after 1-2 menstrual cycles to further assess. Assessment & Plan Assessment & Plan (1) Chronic sacroiliac joint pain: Code(s): M53.3 - Sacrococcygeal disorders, not elsewhere classified; G89.29 - Other chronic pain Category: Medical (2) Arthropathy of lumbar facet joint: Code(s): M47.816 - Spondylosis without myelopathy or radiculopathy, lumbar region Category: Medical (3) Sacroiliitis: Code(s): M46.1 - Sacroiliitis, not elsewhere classified Category: Medical (4) Scoliosis: Code(s): M41.9 - Scoliosis, unspecified Category: Medical (5) Right hip pain: Code(s): M25.551 - Pain in right hip Category: Medical Plan A prescription for meloxicam will be renewed with one refill, to be taken once daily on an as-needed basis. The patient was counseled to take meloxicam with plenty of fluids, not on an empty stomach, and to abstain from alcohol while using the medication due to its effects on the liver and kidneys. The patient has a sufficient supply of methocarbamol and will continue to use it as needed. The patient will continue with the current course of physical therapy. An MRI of the lumbar spine and pelvis will be ordered after the completion of physical therapy to further evaluate the back and hip pain and chronic SI joint pain. A follow-up appointment will be scheduled after the patient completes physical therapy to review progress and imaging results. All questions and concerns have been answered and patient agreed with the treatment plan. Patient was informed and verbally consented to the use of an ambient scribe for clinic note documentation during this visit. Medications: Refilled meloxicam Take it with food and full glass of water. Avoid Ibuprofen and other NSAIDs. 15 mg PO DAILY PRN 30 tabs 1RF pain 30 days G89.29 - Other chronic pain, M47.816 - Spondylosis without myelopathy or radiculopathy, lumbar region, M53.3 - Sacrococcygeal disorders, not elsewhere classified Coding Level of Care Code Est Pt Level 4 (66565) Diagnoses Chronic sacroiliac joint pain M53.3; G89.29 Arthropathy of lumbar facet joint M47.816 Sacroiliitis M46.1 Scoliosis M41.9 Right hip pain M25.551
[2025-08-28 14:01] VITALS: BP 122/71; PULSE 87; O2SAT 100; BMI 20.2
--- OUTSIDE RECORDS SUMMARY | 2025-08-28 18:49 | XMS_ITS | Encounter Summary ---
Author Organization [employer] Address [address] [place] [address] Care Team Providers Care Rail Detector Car Operator Name Role Phone Mundo Funk MD Primary Care Provider [phone] Reason for Visit * Reason Onset Date Comments Referral 08/18/2024 EXTERNAL Psychia try Encounter Details Date Type Department Care Team ([facility] st Contact Info) Description 08/18/2024 Telephone [employer] [facility] [address] [place] [address] Mundo Funk MD [address] [place] [address] Social History Tobacco Use Types Packs/Day Years [...] have been physiatry for back pain? * eGronimo Velasquez - 08/18/2024 9:21 AM EST Pt calling for an update on her psychiatry referral, is asking for a call back when it is completedso she can schedule documented in this encounter Plan of Treatment Not on file documented as of this encounter Visit Diagnoses Diagnosis Ankylosing spondylitis of lumbosacral region (CMS/[facility] V24, CMS/[facility] V28)- Primary documented in this encounter Care Teams Rail Detector Car Operator Relationship Specialty Start Date End Date Mundo Funk MD [address] [place] [address] [place] [address] PCP - General Internal Medicine 08/10/24 documented as of this encounter
--- OUTSIDE RECORDS SUMMARY | 2025-08-28 18:49 | XMS_ITS | Encounter Summary ---
Author Organization [employer] Address [address] [place] [address] Care Team Providers Care Web Pressman Name Role Phone Mundo Funk MD Primary Care Provider [phone] Reason for Visit * Reason Onset Date Comments Fall 08/25/2025 Tailbone Pain 08/25/2025 Encounter Details Date Type Department Care Team ([facility] Contact Info) Description 08/25/2025 Telephone Internal Medicine - [address] [place] [address] Mundo Funk MD [address] [place] [id number] Social History Tobacco Use Types Packs/Day Years Used Date Smoking Tobacco: Every Day Cigarettes 0.5 7.3 Started: 10/05/2011; Last attempted to quit: 02/02/2019 Smokeless Tobacco: Never Alcohol Use Standard [...] your loved ones. For example, child support specialist or elderly care for an older adult? [...] as of this encounter Progress Notes * Julissa Dhaliwal RN - 08/25/2025 11:15 AM EST Spoke with pt she slipped and fell on stairs at home yesterday she is c/o tailbone discomforted andright SI , pt denies hitting her head, pt appt given for this pm * Leeann Mcghee - 08/25/2025 11:02 AM EST Patient call requires triage: Symptoms patient is presenting: pt fell yesterday pain tailbone area How long has patient had these symptoms?: 1 day For ALL patients calling to schedule any appointment (routine, sick visit, follow up, consult, etc.) in the outpatient setting please ask the following questions: Do you have fever of higher than 101, sore throat with difficulty swallowing or severe shortness ofbreath? no If YES to any of these above symptoms, send a message to triage and do not book. Red dot. If no, an audio or video visit should be booked. Have you had close contact with someone with Coronavirus in the last 14 days? no Have you traveled abroad? no Have you traveled recently to another state outside of [place], [place], [place], [place], [place], [place], [place]? no o If yes, did you quarantine for 14 days or have a negative covid test? no If yes to any of the above, patient is not to be scheduled in office until after 14 day quarantine or negative covid test. If pain or injury related was it due to an accident at work or from a motor vehicle accident? If yes, date of accident/Injury: No If yes, gather 3rd constitution party insurance information Third Libertarian Information: not applicable PCP: Mundo Funk MD Payor: [employer] PLAN / Plan: [employer] MEDICAID / Product Type: *No Product type* / documented in this encounter Plan of Treatment Not on file documented as of this encounter Visit Diagnoses Not on filedocumented in this encounter Additional Health Concerns Assessment Noted Time PHQ-9 Depression Total Score: 9 09/22/20 24 1:37 PM EST documented as of this encounter Care Teams Web Pressman Relationship Specialty Start Date End Date Mundo Funk MD [address] [place] [address] PCP - General Internal Medicine 08/10/24 documented as of this encounter
--- OUTSIDE RECORDS SUMMARY | 2025-08-28 18:49 | XMS_ITS | Clinical Summary ---
Author Organization [facility] [address] [place] [address] [place] [phone] Phone Care Team Providers Care Photo Stylist Name Role Phone Mundo Funk MD Primary Care Provider [phone] Allergies No known active allergies Medications ibuprofen (ADVIL,MOTRIN) 600 mg tablet Take 1 tablet (600 mg total) by mouth every 6 (six) hours if needed for mild pain (for up to 30 days). 05/18/2022 Active predniSONE (DELTASONE) 20 mg tablet Take 2 tablets daily x 4 days, then 1 tablet daily x 4 days 12 tablet 06/30/2025 Active methocarbamoL (ROBAXIN) 500 mg tablet Take 1 tablet (500 mg total) by mouth 4 (four) times a day if needed for muscle spasms. 40 tablet 07/26/2025 5 Active Active Problems Problem Noted Date Diagnosed Date Arthropathy of lumbar facet joint 12/20/2024 Pain of female genitalia 12/20/2024 Bipolar disorder (CMS/HCC V24, CMS/HCC V28) 03/06 Overview (08/18/2024): Follows with chd GERD (gastroesophageal reflux disease) 3 OCD (obsessive compulsive disorder) 12/16/2022 COVID-19 affecting in third trimester 05/18/2022 Overview (08/18/2024): +test on admission to [facility] 05/16/2022. Had cough and tachycardia, never had fever Lumbar radiculitis 04/11/2019 Blurry vision 04/11/2019 Epilepsy ([facility] V24, [facility] V28) 01/06/2013 Overview (08/18/2024): As a child; resolved no longer on medications. Depression 01/06/2013 Overview (08/18/2024): Seen by [facility] Scoliosis 01/06/2013 Overview (08/18/2024): 05/17-Mild to moderate [...] Date Ankylosing spondylitis of solis mbosacral region ([facility] V24, [facility] V28) 04/11/2019 12/20/2024 Overview (08/18/2024): Dr. Saeed, patient's Automat Car Attendant recommends starting Cimzia Cimzia is safe in and likely compatible with Encounters Date Type Department Care Team Description 08/25/2025 Telephone Internal Medicine - [facility] [address] [place] [phone] Mundo Funk MD 06/30/2025 10:55 AM EDT - 06/30/2025 11:59 PM EDT Hospital Encounter Xray - [facility] [address] [place] [phone] Acute left-sided thoracic back pain Discharge Disposition: Home or Self Care 06/30/2025 10:45 AM EDT Office Visit [facility] [address] [facility] [place] [phone] Abena Kalpan NP Acute left-sided thoracic back pain (Primary Dx) 06/12/2025 1:34 PM EDT - 06/12/2025 11:59 PM EDT Hospital Encounter Xray - [address] [phone] Discharge Disposition: Home or Self Care 06/12/2025 1:15 PM EDT Office Visit Walk-In Clinic - [address] [phone] Maurice Abernathy NP Right foot injury, initial encounter (Primary Dx); Sprain of right ankle, unspecified ligament, initial encounter 06/12/2025 Telephone Internal Medicine - [address] [phone] Mundo Funk MD from Last 3 Months Immunizations Immunization Administration [...] History Surgery Date Site/Laterality Comments BUNIONECTOMY PROCEDURE: [facility] CORRJ HLX VLGS BNCTY SESMDC W/DOUBLE OSTEOTOMY; COMMENT: bilateral bunionectomy OTHER SURGICAL HISTORY PROCEDURE: HISTORY OTHER; COMMENT: surgery for de quervains Medical History Medical History Date Comments Ankylosing spondylitis of si te in spine ([facility] V24, [facility] V28) DX:Ankylosing spondylitis o f site in spine (HCC) Hyperthyroidism DX:Hyperthyroidi sm Scoliosis Family History Medical [...] your loved ones. For example, child care sitter or elderly care for an older adult? [...] g 7 9 Bianka franco fausto Delivery Location:[facility] Comments:bilat labial laceration 2012 35w 4d 4h 25m/ 2381 g (84 oz) F Vag-S pont Epidur al Livin g 8 9 Laura lombardo CNM Delivery Location:[facility] 2021 Term 37w 4d 2608 [...] Depression Screening 10/05/2024 09/22/2024, 03/28/20 COVID-19 Vaccine ( season) 2025 Influenza Vaccine (#1) 2025 , [...] Associated Diagnosis Comments EXTERNAL XRAY REPORT 07/10/2025 EXTERNAL XRAY REPORT 07/10/2025 EXTERNAL XRAY REPORT 07/10/2025 XR THORACIC SPINE 2 VIEWS Routine 06/30/2025 11:07 AM EDT Acute left-sided thoracic back pain XR FOOT 3+ VIEWS RIGHT STAT 06/12/2025 1:50 PM EDT Right foot injury, initial encounter HM DEPRESSION SCREENING Routine 03/28/2024 LIPID PANEL Routine 03/28/2024 HPV Routine 11/20/2021 HEPATITIS C SCREENING Routine 11/18/2021 HIV SCREENING Routine 11/18/2021 from Last 3 Months or Most Recently Relevant to Health Maintenance Results * External Xray Report (07/10/2025) Only the most recent of3 resultswithin the time period is included. Anatomical Region Laterality Modality Radiographic Karina ging Provider [place] [facility] IMG XR PROCEDURES Final Result * [...] Signed Date: 06/30/2025 16:37 ET Workstation ID: [id number] Transcribed By: Self Edit Transcribed Date: 06/30/2025 [...] Signed Date: 06/30/2025 16:37 ET Workstation ID: [id number] Transcribed By: Self Edit Transcribed Date: 06/30/2025 [...] at the first MTP joint. POS - [id number] -------- FINAL REPORT -------- Dictated By: Leandra Borjas Dictated Date: 06/12/2025 14:22 ET Assigned Physician: Leandra Borjas Reviewed and Electronically Signed By: Leandra Borjas Signed Date: 06/12/2025 14:27 ET Workstation ID: [id number] Transcribed By: Self Edit Transcribed Date: 06/12/2025 [...] at the first MTP joint. POS - [id number] -------- FINAL REPORT -------- Dictated By: Leandra Borjas Dictated Date: 06/12/2025 14:22 ET Assigned Physician: Leandra Borjas Reviewed and Electronically Signed By: Leandra Borjas Signed Date: 06/12/2025 14:27 ET Workstation ID: [id number] Transcribed By: Self Edit Transcribed Date: 06/12/2025 14:22 ET Maurice Abernathy NP IMG XR PROCEDURES Final Resul t * Hm Depression Screening (03/28/2024) [facility] Depression Screening abstracted [facility] Provider HEALTH MAINTENANCE Final Result * Lipid panel (03/28/2024) [facility] LDL/HDL Ratio 3 0 - 4 Triglycerides 54 0 - 150 mg/dL Cholesterol 162 0 - 200 mg/dL HDL 63 >=40 mg/dL LDL Cholesterol 89 0 - 100 mg/dL Blood Venous blood specimen / Unknown [facility] Provider LAB BLOOD ORDERABLES Katelyn l Result * Cervical Cancer Screening: HPV (11/20/2021) [facility] Cervical Cancer Screening: HPV abstracted, no interpretation [facility] Provider HEALTH MAINTENANCE Final Result * HIV Screening (11/18/2021) [facility] HIV Screening abstracted [facility] Provider HEALTH MAINTENANCE Final Result * Hepatitis C Screening (11/18/2021) [facility] Hepatitis C Screening abstracted [facility] Provider HEALTH MAINTENANCE Final Result from Last 3 Months or Most Recently Relevant to Health Maintenance Insurance [facility] [place] [address] Care Teams Photo Stylist Relationship Specialty Start Date End Date Mundo Funk MD [address] [place], [place] [id number] PCP - General Internal Medicine 08/10/24
== END 2025-08-28 14:06 | disposition home or self-care (01) ==
LOC: HO.PMC 13:54
PROVIDERS: PCP Internal Medicine; Visit Provider Nurse Practitioner Family
DX: M53.3 Sacrococcygeal disorders, not elsewhere classified (principal); G89.29 Other chronic pain; M47.816 Spondylosis without myelopathy or radiculopathy, lumbar region; M46.1 Sacroiliitis, not elsewhere classified; M41.9 Scoliosis, unspecified; M25.551 Pain in right hip
CPT/HCPCS: 99214

== ENCOUNTER → 2025-08-28 13:54 | Outpatient (BNVA) | payer OTHER, SELFPAY | PROVIDERS: PCP Internal Medicine; Visit Provider Nurse Practitioner Family | DX: M53.3 Sacrococcygeal disorders, not elsewhere classified (principal); M47.816 Spondylosis without myelopathy or radiculopathy, lumbar region; M46.1 Sacroiliitis, not elsewhere classified; M41.9 Scoliosis, unspecified; M25.551 Pain in right hip; G89.29 Other chronic pain | CPT/HCPCS: 99212 ==